=== PATIENT | female | born 1935 | race Caucasian/White ===

== ENCOUNTER 2019-07-10 00:34 | Emergency (ER) | payer MEDICARE, OTHER, MEDICAID ==
[~2019-07-10] VITALS: Ht 170.2 cm; Wt 86.2 kg
[2019-07-10 00:34] VITALS: BP 109/82
[~2019-07-10 00:34] MED LIST: ACET-687 PO; ATOR10TA PO; CANA100T PO; CARV6.25 PO; DONE10TA57 PO; FURO-81 PO; GLIM2TAB2 PO; HYDR25TA9 PO; METF10007 PO; POTA10CA PO; SERT50TA PO; SITA100T PO; SITA50TA PO; VALS320T2 PO; VALS40TA2 PO
[2019-07-10] MEDS ORDERED: DULA1.5P SQ (00:39)
[2019-07-10] MEDS ORDERED: OMEP20CA13 PO (00:39)
[2019-07-10] MEDS ORDERED: NS 1000ML 1,000 ML STA (00:40)
--- NOTE | 2019-07-10 00:46 | ER.PDOC ---
General Chief Complaint: Requesting Medical Care Stated Complaint: N/V Time seen by MD: 00:35 Source: patient, EMS, senior care records Exam Limitations: no limitations History of Present Illness Initial Comments Pt with a NH history of nausea, no vomiting, hypertension, according to senior care, no other complaints. No chest pain, no nausea at the moment. Severity/Quality: mild Allergies: Coded Allergies: morphine (Verified Allergy, Unknown, 11/22/15) Home Meds Reported Medications Dextran 70/Hypromellose (ARTIFICIAL TEARS EYE DROPS) 15 Ml Drops, 2 DROP OP Q4HR, #15 MILLILITER 5 Refills 07/10/19 Aspirin (ASPIRIN EC) 81 Mg Tablet.dr, 1 TAB PO DAILY, #30 TAB 3 Refills 07/10/19 Cyanocobalamin (Vitamin B-12) (VITAMIN B-12) 1,000 Mcg Tablet, 1 TAB PO ONE TIME A MONTH, #30 TAB 2 Refills 07/10/19 Calcium Carbonate/Vitamin D3 (CALCIUM 500 + VIT D 200 TABLET) 1 Each Tablet, 1 EACH PO BID, TABLET 07/10/19 Dulaglutide (Trulicity) 1.5 Mg/0.5 Ml Pen.injctr, 1.5 MG SQ QFRIDAY, UNITS 07/10/19 Omeprazole (OMEPRAZOLE) 20 Mg Capsule.dr, 1 CAP PO DAILY, #30 CAP 5 Refills 07/10/19 Carvedilol 6.25MG (COREG 6.25MG) 6.25 Mg Tablet, 1 TAB PO BID, #180 TAB 3 Refills 09/08/16 Acetaminophen With Codeine (TYLENOL WITH CODEINE #4 TABLET) 1 Each Tablet, 1 EACH PO Q4 for PAIN 8-10, TABLET 06/27/16 Metformin Hcl (METFORMIN HCL) 1,000 Mg Tablet, 1 TAB PO BID, #60 TAB 5 Refills 06/27/16 Valsartan (DIOVAN) 320 Mg Tablet, 80 MG PO DAILY, #90 TAB 1 Refill 03/19/16 Sitagliptin Phosphate (JANUVIA) 50 Mg Tablet, 100 MG PO DAILY, TABLET 11/22/15 Atorvastatin 10MG (LIPITOR 10MG) 10 Mg Tablet, 1 TAB PO HS, #90 TAB 1 Refill 11/22/15 Donepezil Hcl (ARICEPT) 10 Mg Tablet, 1 TAB PO DAILY, #90 TAB 3 Refills 11/22/15 Discontinued Reported Medications Furosemide (LASIX) 20 Mg Tablet, 10 MG PO DAILY, TABLET 09/08/16 Canagliflozin (Invokana) 100 Mg Tablet, 100 MG PO DAILY, TABLET 09/08/16 Sertraline Hcl (ZOLOFT) 50 Mg Tablet, 1 TAB PO DAILY, #30 TAB 2 Refills 06/27/16 Potassium Chloride (POTASSIUM CHLORIDE) 10 Meq Capsule.er, 1 CAP PO DAILY, #90 CAP 1 Refill 06/27/16 Vital Signs First Vital Signs Date Time Temp Pulse Resp B/P (MAP) Pulse Ox O2 Delivery O2 Flow Rate FiO2 07/10/19 00:34 97.6 83 16 109/82 (91) 96 Room Air Last Vital Signs Date Time Temp Pulse Resp B/P (MAP) Pulse Ox O2 Delivery O2 Flow Rate FiO2 07/10/19 00:44 97.6 83 16 96 Room Air 07/10/19 00:34 109/82 (91) Past Medical History Surgical History: hysterectomy, knee Gastrointestinal: see HPI All Other Systems: Reviewed and Negative Physical Exam General Appearance: No Apparent Distress, WD/WN HEENT: PERRL/EOMI, Normal ENT Inspection, TMs Normal, Pharynx Normal Neck: Non-Tender, Full Range of Motion, Supple, Normal Inspection Respiratory: chest non-tender, lungs clear, normal breath sounds, no respiratory distress, no accessory muscle use Cardiovascular: Normal Peripheral Pulses, Regular Rate, Rhythm, No Edema, No Gallop, No JVD, No Murmur Gastrointestinal: Normal Bowel Sounds, No Organomegaly, No Pulsatile Mass, Non Tender, Soft Back: Normal Inspection, No CVA Tenderness, No Vertebral Tenderness Extremities: Normal Range of Motion, Non-Tender, Normal Inspection, No Pedal Edema, No Calf Tenderness, Normal Capillary Refill, Pelvis Stable Neurologic/Psychiatric: staff nuclear medicine technologist II-XII NML as Tested, No Motor/Sensory Deficits, Alert, Normal Mood/Affect, Oriented x 3 Skin: Normal Color, Warm/Dry Lymphatic: No Adenopathy Results/Orders Results/Orders Orders - CORY SEPULVEDA MD Cbc With Auto Diff (07/10/19 00:40) Comprehensive Metabolic Panel (07/10/19 00:40) Amylase (07/10/19 00:40) Lipase (07/10/19 00:40) Urinalysis (07/10/19 00:40) 0.9 % Sodium Chloride (Ns 1000ml) (07/10/19 00:40) Troponin I (07/10/19 00:40) 0.9 % Sodium Chloride (Ns 1000ml) (07/10/19 01:06) Urine Culture (07/10/19 01:00) Vital Signs Date Time Temp Pulse Resp B/P (MAP) Pulse Ox O2 Delivery O2 Flow Rate FiO2 07/10/19 00:44 97.6 83 16 96 Room Air 07/10/19 00:34 97.6 83 16 07/10/19 00:34 97.6 83 16 109/82 (91) 96 Room Air Administered Medications Medications (Trade) Dose Ordered Sig/Rosina Route PRN Reason Start Time Stop Time Status Last Admin Dose Admin Sodium Chloride 1,000 ml @ 200 mls/hr Q5H STAT IV 07/10/19 00:40 07/10/19 05:39 07/10/19 01:14 200 MLS/HR Laboratory Tests Test 07/10/19 00:46 07/10/19 01:00 White Blood Count 12.4 10^3/uL (4.5-11.0) H Red Blood Count 4.38 10^6/uL (4.00-5.20) Hemoglobin 12.6 g/dL (12.0-15.0) Hematocrit 38.2 % (36.0-46.0) Mean Corpuscular Volume 87.2 fL (78-100) Mean Corpuscular Hemoglobin 28.8 pg (26-34) Mean Corpuscular Hemoglobin Concent 33.0 g/dL (33-37) Red Cell Distribution Width 14.2 % (11.5-14.5) Platelet Count 276 10^3/uL (150-400) Mean Platelet Volume 9.3 fL (7.8-11.0) Neutrophils (%) (Auto) 73.5 % (41.0-85.0) Lymphocytes (%) (Auto) 12.7 % (24.0-44.0) L Monocytes (%) (Auto) 8.0 % (5.0-12.0) Neutrophils # (Auto) 9.1 10^3/uL (1.8-7.7) H Lymphocytes # (Auto) 1.6 10^3/uL (1.0-4.8) Monocytes # (Auto) 1.0 10^3/uL (0.3-0.8) H Absolute Immature Granulocyte (auto 0.04 10^3 u/L (0-2) Immature Granulocytes % 0.30 % (0.00-0.50) Eosinophils % 5.3 % (0.0-5.0) H Basophils % 0.2 % (0.0-0.2) Basophils # 0.0 10^3/uL (0.0-0.1) Eosinophil Count 0.7 10^3/uL (0.0-0.2) H Sodium Level 140 mmol/L (132-145) Potassium Level 4.1 mmol/L (3.6-5.2) Chloride Level 104.0 mmol/L (96-109) Carbon Dioxide Level 25.7 mmol/L (20.0-32) Anion Gap 14.4 Blood Urea Nitrogen 19 mg/dL (7-18) H Creatinine 1.18 mg/dL (0.59-1.40) Estimated GFR () 52.5 (>/=60) BUN/Creatinine Ratio 16.0 Glucose Level 225 mg/dL (70-110) H Calcium Level 9.4 mg/dL (8.4-10.5) Total Bilirubin 0.6 mg/dL (0.2-1.0) Aspartate Amino Transferase (AST) 13 U/L (0-35) Alanine Aminotransferase (ALT) 11 U/L (12-78) L Alkaline Phosphatase 86 U/L (50-136) Troponin I < 0.02 ng/mL (0.00-0.05) Total Protein 7.3 g/dL (6.4-8.2) Albumin 3.8 g/dL (3.4-5.0) Globulin 3.5 Amylase Level 82 U/L (25-115) Lipase 245 U/L (114-286) Urine Collection Type VOID Urine Color YELLOW (YELLOW) Urine Appearance CLOUDY (CLEAR) H Urine Bilirubin NEGATIVE MG/DL (NEGATIVE) Urine Ketones NEGATIVE (NEGATIVE) Urine Specific [place] 1.015 (1.005-1.035) Urine pH 6 (5.0-6.0) Urine Protein 15 mg/dL (NEGATIVE) H Urine Urobilinogen NORMAL (NEGATIVE) Urine Nitrate NEGATIVE (NEGATIVE) Urine Leukocyte Esterase 100/ul 1+ (NEGATIVE) Urine Blood 10 TR (NEGATIVE) H Urine RBC 0-2 RBC/HPF (NONE SEEN) Urine WBC 10-25 WBC/HPF (0-2) H Urine Squamous Epithelial Cells NONE SEEN #/HPF (FEW) Urine Bacteria MODERATE (NONE SEEN) H Urine Yeast MANY Urine Glucose 500 (NEGATIVE) H Departure Time of Disposition: 01:23 Disposition: 01 HOME, SELF-CARE Impression: Primary Impression: Nausea Additional Impression: UTI (urinary tract infection) Condition: Stable Patient Instructions: Urinary Tract Infection Referrals: KIM FERRARA (PCP) PRIMARY CARE PROVIDER Duration or Time Spent with Pa: 20 Problem Qualifiers CORY SEPULVEDA MD Jul 10, 2019 00:46
[2019-07-10] MEDS ORDERED: CALC-157 PO (00:51)
[2019-07-10] MEDS ORDERED: ASPI-655 PO (00:51)
[2019-07-10] MEDS ORDERED: CYAN-26 PO (00:51)
[2019-07-10] MEDS ORDERED: DEXT15DR5 OP (00:51)
[2019-07-10 00:54] LABS: BASOPHIL % 0.2 % (0.0-0.2); EOSINOPHIL # 0.7 10^3/uL (0.0-0.2); EOSINOPHIL % 5.3 % (0.0-5.0); HEMOGLOBIN 12.6 g/dL (12.0-15.0); LYMPHOCYTES # 1.6 10^3/uL (1.0-4.8); LYMPHOCYTES % 12.7 % (24.0-44.0); MEAN CELL HGB 28.8 pg (26-34); MEAN CORP VOLUME 87.2 fL (78-100); MEAN PLATELET VOLUME 9.3 fL (7.8-11.0); NEUTROPHIL # 9.1 10^3/uL (1.8-7.7); NEUTROPHILS % 73.5 % (41.0-85.0); RED CELL DISTRIBUTION WIDTH 14.2 % (11.5-14.5); WHITE BLOOD CELL 12.4 10^3/uL (4.5-11.0)
[2019-07-10 01:04] LABS: BILIRUBIN,URINE NEGATIVE (NEGATIVE); UROBILINOGEN,URINE NORMAL (NEGATIVE)
[2019-07-10] MEDS ORDERED: NS 1000ML 1,000 ML ONE (01:06)
[2019-07-10 01:12] LABS: APPEARANCE,URINE CLOUDY (CLEAR); UA COLOR YELLOW (YELLOW); YEAST,URINE MANY
[2019-07-10 01:15] LABS: ALANINE AMINOTRANSFERASE(ML) 11 U/L (12-78); ALKALINE PHOSPHATASE 86 U/L (50-136); ASPARTATE AMINO TRANSFERASE 13 U/L (0-35); CALCIUM 9.4 mg/dL (8.4-10.5); CARBON DIOXIDE 25.7 mmol/L (20.0-32); GLUCOSE 225 mg/dL (70-110)
--- NOTE | 2019-07-10 01:28 | NUR ---
COMPUTER GAME TESTER SPOKE WITH SCOTT ARROYO AT [facility] REGARDING PATIENT READY TO DISCHARGE. SCOTT ARROYO STATES "IT WILL BE A WHILE BECAUSE I WILL HAVE TO GET [employer] OF OUR TRANSPORT". WILL CONTINUE TO MONITOR PATIENT UNTIL [facility] EMPLOYEE ARRIVES TO PICK HER UP.
[2019-07-10 01:30] VITALS: BP 111/56
[2019-07-10 02:30] VITALS: BP 156/68
--- NOTE | 2019-07-10 02:45 | NUR ---
IV IV DISCONTINUED, TIP INTACT. PRESSURE DRESSING APPLIED.
[2019-07-10 02:50] VITALS: BP 156/68
== END 2019-07-10 02:45 | disposition home or self-care (01) ==
LOC: ER 00:34 → EDBD 00:34 → ER 02:45
DX: N39.0 Urinary tract infection, site not specified (principal); Z79.82 Long term (current) use of aspirin; Z79.891 Long term (current) use of opiate analgesic; Z79.84 Long term (current) use of oral hypoglycemic drugs; Z90.710 Acquired absence of both cervix and uterus; Z98.890 Other specified postprocedural states; Z79.899 Other long term (current) drug therapy; Z88.5 Allergy status to narcotic agent
CPT/HCPCS: 36415; 80053; 81000; 82150; 83690; 84484; 85025; 87086; 99284; J7030; 87077; 87186

== ENCOUNTER → 2020-02-27 | Outpatient (CLI) | payer MEDICARE, OTHER, MEDICAID ==
[~2020-02-27] MED LIST changes: +ASPI-655 PO; +CALC-157 PO; +CYAN-26 PO; +DEXT15DR5 OP; +DULA1.5P SQ; -GLIM2TAB2 PO; +GLIM2TAB7 PO; +OMEP20CA19 PO
[2020-02-27 18:30] LABS: MEAN CORP HGB 26.9 pg (26-34); RED CELL DISTRIBUTION WIDTH 15.8 % (11.5-14.5)
[2020-02-27 19:06] LABS: CALCIUM 9.2 mg/dL (8.4-10.5); CARBON DIOXIDE 27.6 mmol/L (20.0-32)
== END | disposition home or self-care (01) ==
LOC: NPLAB 18:07
PROVIDERS: ATTEND Family Medicine
DX: R06.02 Shortness of breath (principal); R05 Cough; E11.9 Type 2 diabetes mellitus without complications
CPT/HCPCS: 80053; 85027; 87804; 87880

== ENCOUNTER 2020-03-02 20:25 | Emergency (ER) | payer MEDICARE, OTHER, MEDICAID ==
[~2020-03-02] VITALS: Ht 167.6 cm; Wt 81.6 kg
[2020-03-02 20:28] VITALS: BP 183/117
[2020-03-02 20:35] VITALS: BP 183/117
--- NOTE | 2020-03-02 20:49 | NUR ---
ARRIVAL PATIENT ARRIVED VIA EMS FROM [facility]. PATIENT HAD RECEIVED POSITIVE COVID-19 TEST RESULTS TODAY AND IS BEING TREATED FOR STREP THROAT. PATIENT IS STABLE AND DOES NOT KNOW WHY SHE IS HERE. I CALLED [facility] AND SPOKE WITH KELLEY, PATIENT'S NURSE. KELLEY STATED DR. FERRARA ORDERED THAT PATIENT BE SENT TO ER FOR A LAB WORKUP. KELLEY ALSO STATED THAT STATE INSPECTORS WERE DUE IN THEIR FACILITY TOMORROW AND THEY NEEDED TO SHOW ALL PRECAUTIONS BEING TAKEN.
[2020-03-02 21:30] VITALS: BP 151/115
--- NOTE | 2020-03-02 21:39 | ER.PDOC ---
General Chief Complaint: Sore Throat Stated Complaint: COVID POSITIVE/STREP POSITIE TRAVEL OUT OF US: No Time seen by MD: 21:37 Source: patient Exam Limitations: no limitations History of Present Illness Initial Comments Patient positive for COVID-19 today and sent here for labs. Patient does not have any complaints. He is taking Amoxil for a sore throat and is already feeling better. She has a mild cough but no SOB. Associated Symptoms: cough Allergies: Coded Allergies: morphine (Verified Allergy, Unknown, 11/22/15) Home Meds Reported Medications Dextran 70/Hypromellose (ARTIFICIAL TEARS EYE DROPS) 15 Ml Drops, 2 DROP OP Q4HR, #15 MILLILITER 5 Refills 07/10/19 Aspirin (ASPIRIN EC) 81 Mg Tablet.dr, 1 TAB PO DAILY, #30 TAB 3 Refills 07/10/19 Cyanocobalamin (Vitamin B-12) (VITAMIN B-12) 1,000 Mcg Tablet, 1 TAB PO ONE TIME A MONTH, #30 TAB 2 Refills 07/10/19 Calcium Carbonate/Vitamin D3 (CALCIUM 500 + VIT D 200 TABLET) 1 Each Tablet, 1 EACH PO BID, TABLET 07/10/19 Dulaglutide (Trulicity) 1.5 Mg/0.5 Ml Pen.injctr, 1.5 MG SQ QFRIDAY, UNITS 07/10/19 Omeprazole (OMEPRAZOLE) 20 Mg Capsule.dr, 1 CAP PO DAILY, #30 CAP 5 Refills 07/10/19 Carvedilol 6.25MG (COREG 6.25MG) 6.25 Mg Tablet, 1 TAB PO BID, #180 TAB 3 Refills 09/08/16 Acetaminophen With Codeine (TYLENOL WITH CODEINE #4 TABLET) 1 Each Tablet, 1 EACH PO Q4 for PAIN 8-10, TABLET 06/27/16 Metformin Hcl (METFORMIN HCL) 1,000 Mg Tablet, 1 TAB PO BID, #60 TAB 5 Refills 06/27/16 Valsartan (DIOVAN) 320 Mg Tablet, 80 MG PO DAILY, #90 TAB 1 Refill 03/19/16 Sitagliptin Phosphate (JANUVIA) 50 Mg Tablet, 100 MG PO DAILY, TABLET 11/22/15 Atorvastatin 10MG (LIPITOR 10MG) 10 Mg Tablet, 1 TAB PO HS, #90 TAB 1 Refill 11/22/15 Donepezil Hcl (ARICEPT) 10 Mg Tablet, 1 TAB PO DAILY, #90 TAB 3 Refills 11/22/15 Past Medical History Medical History: diabetes, high cholesterol, hypertension, other Surgical History: hysterectomy, knee Social History Alcohol Use: none Drug Use: none Review of Systems Constitutional: no symptoms reported Respiratory: see HPI Cardiovascular: no symptoms reported Gastrointestinal: no symptoms reported Genitourinary: no symptoms reported All Other Systems: Reviewed and Negative Physical Exam General Appearance: No Apparent Distress, WD/WN Neck: Non-Tender, Full Range of Motion, Supple Respiratory: chest non-tender, lungs clear, normal breath sounds, no respi ratory distress CVS: reg rate & rhythm, no murmur, no gallop, pulses nml Gastrointestinal: Normal Bowel Sounds, No Organomegaly, No Pulsatile Mass, Non Tender Back: Normal Inspection, No CVA Tenderness Extremities: Normal Range of Motion Neurologic/Psychiatric: environmental program manager II-XII NML as Tested Skin: Normal Color Results/Orders Results/Orders Orders - YVES RODRÍGUEZ MD Cbc With Auto Diff (03/02/20 21:00) Comprehensive Metabolic Panel (03/02/20 21:00) D-Dimer (03/02/20 21:00) C-Reactive Protein (03/02/20 21:00) Ferritin(Ml) (03/02/20 21:29) Xr Chest 2v (03/02/20 21:30) Vital Signs Date Time Temp Pulse Resp B/P (MAP) Pulse Ox O2 Delivery O2 Flow Rate FiO2 03/02/20 20:35 99.2 72 18 183/117 (139) 97 Room Air 03/02/20 20:28 99.2 72 18 97 03/02/20 20:28 99.2 72 18 Laboratory Tests Test 03/02/20 21:30 White Blood Count 5.5 10^3/uL (4.5-11.0) Red Blood Count 4.33 10^6/uL (4.00-5.20) Hemoglobin 11.7 g/dL (12.0-15.0) L Hematocrit 36.2 % (36.0-46.0) Mean Corpuscular Volume 83.6 fL (78-100) Mean Corpuscular Hemoglobin 27.0 pg (26-34) Mean Corpuscular Hemoglobin Concent 32.3 g/dL (33-36.5) L Red Cell Distribution Width 15.4 % (11.5-14.5) H Platelet Count 213 10^3/uL (150-400) Mean Platelet Volume 9.8 fL (7.8-11.0) Neutrophils (%) (Auto) 55.7 % (41.0-85.0) Lymphocytes (%) (Auto) 26.2 % (24.0-44.0) Monocytes (%) (Auto) 8.4 % (5.0-12.0) Neutrophils # (Auto) 3.1 10^3/uL (1.8-7.7) Lymphocytes # (Auto) 1.44 10^3/uL1 (1.0-4.8) Monocytes # (Auto) 0.5 10^3/uL (0.3-0.8) Absolute Immature Granulocyte (auto 0 10^3 u/L (0-2) Absolute Eosinophils (auto) 0.5 10^3/uL (0.0-0.2) H Immature Granulocytes % 0.00 % (0.00-0.50) Eosinophils % 9.3 % (0.0-5.0) H Basophils % 0.4 % (0.0-0.2) H Basophils # 0.0 10^3/uL (0.0-0.1) D-Dimer 0.77 mg/L (0.19-0.49) *H Sodium Level 141 mmol/L (132-145) Potassium Level 3.9 mmol/L (3.6-5.2) Chloride Level 105.0 mmol/L (96-109) Carbon Dioxide Level 29.6 mmol/L (20.0-32) Anion Gap 10.3 Blood Urea Nitrogen 19 mg/dL (7-18) H Creatinine 1.26 mg/dL (0.59-1.40) Estimated GFR () 48.7 (>/=60) Est GFR (CKD-EPI)(Non-Afr Iraqi) 40.3 (>/=60) BUN/Creatinine Ratio 15.0 Glucose Level 118 mg/dL (70-110) H Calcium Level 9.3 mg/dL (8.4-10.5) Ferritin 36 ng/mL (8-252) Total Bilirubin 0.9 mg/dL (0.2-1.0) Aspartate Amino Transferase (AST) 31 U/L (0-35) Alanine Aminotransferase (ALT) 19 U/L (12-78) Alkaline Phosphatase 84 U/L (50-136) C-Reactive Protein 0.40 mg/dL (0.00-5.00) Total Protein 7.6 g/dL (6.4-8.2) Albumin 3.9 g/dL (3.4-5.0) Globulin 3.7 EKG/XRAY/CT/US XRAY: chest (No active disease) Departure Time of Disposition: 22:41 Disposition: 01 HOME, SELF-CARE Impression: Primary Impression: COVID-19 virus infection Condition: Stable Referrals: KIM FERRARA (PCP) PRIMARY CARE PROVIDER Additional Instructions: F/U with your [facility]ent[facility] Provider. Duration or Time Spent with Pa: 60 min YVES RODRÍGUEZ MD Mar 02, 2020 21:39
[2020-03-02 21:45] LABS: BASOPHIL % 0.4 % (0.0-0.2); EOSINOPHIL # 0.5 10^3/uL (0.0-0.2); EOSINOPHIL % 9.3 % (0.0-5.0); LYMPHOCYTES # 1.44 10^3/uL1 (1.0-4.8); LYMPHOCYTES % 26.2 % (24.0-44.0); MONOCYTES # 0.5 10^3/uL (0.3-0.8); MONOCYTES % 8.4 % (5.0-12.0); NEUTROPHIL # 3.1 10^3/uL (1.8-7.7); NEUTROPHILS % 55.7 % (41.0-85.0); PLATELET COUNT 213 10^3/uL (150-400); RED CELL DISTRIBUTION WIDTH 15.4 % (11.5-14.5)
[2020-03-02 21:53] LABS: CALCIUM 9.3 mg/dL (8.4-10.5); CARBON DIOXIDE 29.6 mmol/L (20.0-32)
--- NOTE | 2020-03-02 22:07 | NUR ---
[facility] CALLED WITH [facility] [address].[facility]. DR MARINELLI NOTIFIED AT THIS TIME.
--- NOTE | 2020-03-02 22:35 | NUR ---
[facility] notified [facility] need for transfer
--- NOTE | 2020-03-02 22:37 | DIREP ---
PROCEDURE:CHEST 2 VIEWS COMPARISON:None. INDICATIONS:Cough FINDINGS: LUNGS/PLEURA:No significant pulmonary parenchymal abnormalities. No effusions. VASCULATURE:Normal. Unremarkable pulmonary vasculature. CARDIAC:Normal. No cardiac silhouette abnormality or cardiomegaly. MEDIASTINUM:Normal. No visible mass or adenopathy. 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 OTHER:Negative. CONCLUSION: 1. 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 Dictated by: Yadiel Weaver M.D. on 03/02/2020 at 10:35 PM
[2020-03-02 22:49] VITALS: BP 160/88
== END 2020-03-02 23:58 | disposition home or self-care (01) ==
LOC: EDBD 20:25 → ER 20:25
DX: U07.1 COVID-19 (principal); E11.9 Type 2 diabetes mellitus without complications; E78.00 Pure hypercholesterolemia, unspecified; I10 Essential (primary) hypertension; Z79.82 Long term (current) use of aspirin; Z79.899 Other long term (current) drug therapy; Z88.5 Allergy status to narcotic agent; Z90.710 Acquired absence of both cervix and uterus
CPT/HCPCS: 36415; 71046; 80053; 82728; 85025; 85379; 86140; 99284

== ENCOUNTER → 2020-03-05 | Outpatient (CLI) | payer MEDICARE, OTHER, MEDICAID ==
[2020-03-06 00:20] LABS: BASOPHIL % 0.7 % (0.0-0.2); EOSINOPHIL # 0.3 10^3/uL (0.0-0.2); EOSINOPHIL % 6.3 % (0.0-5.0); LYMPHOCYTES # 1.27 10^3/uL1 (1.0-4.8); LYMPHOCYTES % 29.8 % (24.0-44.0); MEAN CORP HGB 27.1 pg (26-34); MONOCYTES # 0.4 10^3/uL (0.3-0.8); MONOCYTES % 10.1 % (5.0-12.0); NEUTROPHIL # 2.3 10^3/uL (1.8-7.7); NEUTROPHILS % 53.1 % (41.0-85.0); PLATELET COUNT 207 10^3/uL (150-400); RED CELL DISTRIBUTION WIDTH 15.7 % (11.5-14.5)
[2020-03-06 00:24] LABS: CALCIUM 8.6 mg/dL (8.4-10.5); CARBON DIOXIDE 25.2 mmol/L (20.0-32)
== END | disposition home or self-care (01) ==
LOC: NPLAB 23:10
PROVIDERS: ATTEND Family Medicine
DX: R06.00 Dyspnea, unspecified (principal); R05 Cough; R07.0 Pain in throat; R51 Headache
CPT/HCPCS: 80053; 85025

== ENCOUNTER → 2020-03-08 | Outpatient (CLI) | payer MEDICARE, OTHER, MEDICAID ==
[2020-03-08 14:16] LABS: BASOPHIL # 0.1 10^3/uL (0.0-0.1); BASOPHIL % 1.1 % (0.0-0.2); EOSINOPHIL # 0.2 10^3/uL (0.0-0.2); EOSINOPHIL % 3.4 % (0.0-5.0); LYMPHOCYTES # 1.12 10^3/uL1 (1.0-4.8); LYMPHOCYTES % 23.9 % (24.0-44.0); MEAN CORP HGB 26.9 pg (26-34); MONOCYTES # 0.4 10^3/uL (0.3-0.8); NEUTROPHIL # 2.9 10^3/uL (1.8-7.7); NEUTROPHILS % 62.2 % (41.0-85.0); PLATELET COUNT 201 10^3/uL (150-400); RED CELL DISTRIBUTION WIDTH 15.8 % (11.5-14.5)
[2020-03-08 19:41] LABS: CALCIUM 8.8 mg/dL (8.4-10.5); CARBON DIOXIDE 26.9 mmol/L (20.0-32)
== END | disposition home or self-care (01) ==
LOC: NPLAB 13:29
PROVIDERS: ATTEND Family Medicine
DX: R06.00 Dyspnea, unspecified (principal); R05 Cough; R50.9 Fever, unspecified; R51 Headache; R07.0 Pain in throat
CPT/HCPCS: 36415; 80053; 85025

== ENCOUNTER → 2020-08-10 | Outpatient (CLI) | payer MEDICARE, OTHER, MEDICAID ==
[~2020-08-10] MED LIST changes: -ASPI-655 PO; +ASPI-929 PO
[2020-08-10 17:52] LABS: BASOPHIL % 0.5 % (0.0-0.2); EOSINOPHIL % 9.5 % (0.0-5.0); LYMPHOCYTES % 27.4 % (24.0-44.0); MEAN CORP HGB 25.8 pg (26-34); NEUTROPHIL # 3.5 10^3/uL (1.8-7.7); NEUTROPHILS % 53.6 % (41.0-85.0); RED CELL DISTRIBUTION WIDTH 16.5 % (11.5-14.5)
[2020-08-10 17:53] LABS: EOSINOPHIL # 0.6 10^3/uL (0.0-0.2); LYMPHOCYTES # 1.8 10^3/uL (1.0-4.8); MONOCYTES # 0.6 10^3/uL (0.3-0.8)
[2020-08-13 12:42] LABS: CALCIUM 9.2 mg/dL (8.4-10.5); CARBON DIOXIDE 36.3 mmol/L (20.0-32)
== END | disposition home or self-care (01) ==
LOC: NPLAB 16:36
PROVIDERS: ATTEND Family Medicine
DX: I10 Essential (primary) hypertension (principal); E11.9 Type 2 diabetes mellitus without complications; K57.91 Diverticulosis of intestine, part unspecified, without perforation or abscess with bleeding
CPT/HCPCS: 36415; 80053; 83036; 85025

== ENCOUNTER → 2020-11-23 | Outpatient (CLI) | payer MEDICARE, OTHER, MEDICAID ==
[2020-11-23 09:27] LABS: BASOPHIL % 0.3 % (0.0-0.2); EOSINOPHIL # 0.5 10^3/uL (0.0-0.2); EOSINOPHIL % 7.6 % (0.0-5.0); LYMPHOCYTES # 1.72 10^3/uL1 (1.0-4.8); LYMPHOCYTES % 24.8 % (24.0-44.0); MEAN CORP HGB 24.7 pg (26-34); MONOCYTES # 0.7 10^3/uL (0.3-0.8); MONOCYTES % 10.4 % (5.0-12.0); NEUTROPHIL # 3.9 10^3/uL (1.8-7.7); NEUTROPHILS % 56.8 % (41.0-85.0); PLATELET COUNT 277 10^3/uL (150-400)
[2020-11-23 10:05] LABS: CALCIUM 9.1 mg/dL (8.4-10.5); CARBON DIOXIDE 26.6 mmol/L (20.0-32)
== END | disposition home or self-care (01) ==
LOC: NPLAB 08:39
PROVIDERS: ATTEND Family Medicine
DX: E78.2 Mixed hyperlipidemia (principal); I10 Essential (primary) hypertension; E11.9 Type 2 diabetes mellitus without complications
CPT/HCPCS: 36415; 80053; 83036; 85025

== ENCOUNTER 2020-11-26 10:00 | Emergency (ER) | payer MEDICARE, OTHER, MEDICAID ==
[~2020-11-26] VITALS: Ht 165.1 cm; Wt 17.7 kg
[2020-11-26 10:11] VITALS: BP 169/89
--- NOTE | 2020-11-26 10:13 | ER.PDOC ---
General Chief Complaint: Requesting Medical Care Stated Complaint: HYPERTENSION TRAVEL OUT OF US: No Time seen by MD: 23:51 History of Present Illness Initial Comments Patient has no complaints. SHe was sent from [facility] because her BP was high. She was given BP meds and EMS was called. Her BP has improved. She specifically denies CP, SOB, N/V/D abd Pain, headache. blurred vision, numbness weakness or any other complaints Allergies: Coded Allergies: morphine (Verified Allergy, Unknown, 11/22/15) Home Meds Reported Medications Dextran 70/Hypromellose (ARTIFICIAL TEARS EYE DROPS) 15 Ml Drops, 2 DROP OP Q4HR, #15 MILLILITER 5 Refills 07/10/19 Aspirin (ASPIRIN EC) 81 Mg Tablet.dr, 1 TAB PO DAILY, #30 TAB 3 Refills 07/10/19 Cyanocobalamin (Vitamin B-12) (VITAMIN B-12) 1,000 Mcg Tablet, 1 TAB PO ONE TIME A MONTH, #30 TAB 2 Refills 07/10/19 Calcium Carbonate/Vitamin D3 (CALCIUM 500 + VIT D 200 TABLET) 1 Each Tablet, 1 EACH PO BID, TABLET 07/10/19 Dulaglutide (Trulicity) 1.5 Mg/0.5 Ml Pen.injctr, 1.5 MG SQ QFRIDAY, UNITS 07/10/19 Omeprazole (OMEPRAZOLE) 20 Mg Capsule.dr, 1 CAP PO DAILY, #30 CAP 5 Refills 07/10/19 Carvedilol 6.25MG (COREG 6.25MG) 6.25 Mg Tablet, 1 TAB PO BID, #180 TAB 3 Refills 09/08/16 Acetaminophen With Codeine (TYLENOL WITH CODEINE #4 TABLET) 1 Each Tablet, 1 EACH PO Q4 for PAIN 8-10, TABLET 06/27/16 Metformin Hcl (METFORMIN HCL) 1,000 Mg Tablet, 1 TAB PO BID, #60 TAB 5 Refills 06/27/16 Valsartan (DIOVAN) 320 Mg Tablet, 80 MG PO DAILY, #90 TAB 1 Refill 03/19/16 Sitagliptin Phosphate (JANUVIA) 50 Mg Tablet, 100 MG PO DAILY, TABLET 11/22/15 Atorvastatin 10MG (LIPITOR 10MG) 10 Mg Tablet, 1 TAB PO HS, #90 TAB 1 Refill 11/22/15 Donepezil Hcl (ARICEPT) 10 Mg Tablet, 1 TAB PO DAILY, #90 TAB 3 Refills 11/22/15 Past Medical History Medical History: diabetes, hypertension, other Surgical History: hysterectomy, knee Social History Drug Use: none Review of Systems Constitutional: no symptoms reported EENTM: no symptoms reported Respiratory: no symptoms reported Cardiovascular: no symptoms reported Gastrointestinal: no symptoms reported Genitourinary: no symptoms reported Musculoskeletal: no symptoms reported Skin: no symptoms reported Psychiatric/Neurological: no symptoms reported All Other Systems: Reviewed and Negative Physical Exam General Appearance: No Apparent Distress, WD/WN EENT: eyes nml inspection, nml ENT inspection Neck: Non-Tender, Supple Respiratory: chest non-tender, lungs clear, normal breath sounds, no respiratory distress CVS: reg rate & rhythm, pulses nml, nml capillary refill Gastrointestinal: Normal Bowel Sounds, Non Tender, Soft Back: Normal Inspection, No Vertebral Tenderness Extremities: Normal Range of Motion, Non-Tender Neurologic/Psychiatric: No Motor/Sensory Deficits, Alert Results/Orders Results/Orders Vital Signs Date Time Temp Pulse Resp B/P (MAP) Pulse Ox O2 Delivery O2 Flow Rate FiO2 11/26/20 10:11 96.7 81 18 95 ER DEPART Departure Time of Disposition: 10:10 Disposition: 01 HOME, SELF-CARE Impression: Primary Impression: Hypertension Condition: Stable Referrals: KIM FERRARA (PCP) PRIMARY CARE PROVIDER Duration or Time Spent with Pa: RAGHAVENDRA RAWLS MD Nov 26, 2020 10:13
--- NOTE | 2020-11-26 10:15 | NUR ---
ARRIVAL PATIENT ARRIVED TO ED3 VIA GURNEY BY [facility], EMS CALLED TO [facility] FOR HIGH BLOOD PRESSURE, NURSING FACILITY REPORTED A 210/110 BLOOD PRESSURE AND GAVE PATIENT MORE MEDICATION, ON EMS ARRIVAL BLOOD PRESSURE READING WAS 170/80, BROUGHT TO THE ED FOR EVAL, VITAL SIGNS OBTAINED AND WITHIN NORMAL LIMITS, DOCTOR CHRISTIE IN ROOM, PATIENT HAS NO COMPLAINTS AND IS UNSURE TO WHY SHE IS HERE. WILL CONTACT THE NURSING FACILITY.
[2020-11-26 10:20] VITALS: BP 146/72
--- NOTE | 2020-11-26 10:29 | NUR ---
[facility] CALLED FOR TRANSFER.
[2020-11-26 10:30] VITALS: BP 146/72
== END 2020-11-26 10:28 | disposition home or self-care (01) ==
LOC: EDBD 10:00 → ER 10:00
DX: I10 Essential (primary) hypertension (principal); E11.9 Type 2 diabetes mellitus without complications; Z79.82 Long term (current) use of aspirin; Z79.84 Long term (current) use of oral hypoglycemic drugs; Z79.899 Other long term (current) drug therapy; Z88.5 Allergy status to narcotic agent; Z90.710 Acquired absence of both cervix and uterus
CPT/HCPCS: 99283

== ENCOUNTER → 2021-02-08 | Outpatient (CLI) | payer MEDICARE, OTHER, MEDICAID ==
[2021-02-08 17:07] LABS: BASOPHIL % 0.3 % (0.0-0.2); EOSINOPHIL # 0.5 10^3/uL (0.0-0.2); EOSINOPHIL % 7.9 % (0.0-5.0); LYMPHOCYTES # 1.68 10^3/uL1 (1.0-4.8); LYMPHOCYTES % 25.1 % (24.0-44.0); MEAN CORP HGB 24.8 pg (26-34); MONOCYTES # 0.6 10^3/uL (0.3-0.8); MONOCYTES % 8.7 % (5.0-12.0); NEUTROPHIL # 3.9 10^3/uL (1.8-7.7); NEUTROPHILS % 57.9 % (41.0-85.0); PLATELET COUNT 275 10^3/uL (150-400); RED CELL DISTRIBUTION WIDTH 16.3 % (11.5-14.5)
[2021-02-08 17:45] LABS: CALCIUM 9.1 mg/dL (8.4-10.5); CARBON DIOXIDE 28.6 mmol/L (20.0-32)
== END | disposition home or self-care (01) ==
LOC: NPLAB 16:33
PROVIDERS: ATTEND Family Medicine
DX: E11.9 Type 2 diabetes mellitus without complications (principal); I10 Essential (primary) hypertension; Z79.899 Other long term (current) drug therapy
CPT/HCPCS: 36415; 80053; 80061; 82306; 83036; 84443; 85025

== ENCOUNTER → 2021-05-12 | Outpatient (CLI) | payer MEDICARE, OTHER, MEDICAID ==
[2021-05-12 13:48] LABS: BASOPHIL % 0.4 % (0.0-0.2); EOSINOPHIL # 1.1 10^3/uL (0.0-0.2); EOSINOPHIL % 15.3 % (0.0-5.0); LYMPHOCYTES # 1.95 10^3/uL1 (1.0-4.8); LYMPHOCYTES % 28.1 % (24.0-44.0); MEAN CORP HGB 24.4 pg (26-34); MONOCYTES # 0.7 10^3/uL (0.3-0.8); MONOCYTES % 9.8 % (5.0-12.0); NEUTROPHIL # 3.2 10^3/uL (1.8-7.7); NEUTROPHILS % 46.3 % (41.0-85.0); PLATELET COUNT 292 10^3/uL (150-400); RED CELL DISTRIBUTION WIDTH 17.1 % (11.5-14.5)
[2021-05-12 14:19] LABS: CARBON DIOXIDE 25.6 mmol/L (20.0-32)
== END | disposition home or self-care (01) ==
LOC: NPLAB 12:30
PROVIDERS: ATTEND Family Medicine
DX: I10 Essential (primary) hypertension (principal); E11.9 Type 2 diabetes mellitus without complications; M47.16 Other spondylosis with myelopathy, lumbar region
CPT/HCPCS: 80053; 83036; 85025

== ENCOUNTER → 2021-05-13 | Outpatient (CLI) | payer MEDICARE, OTHER, MEDICAID | END | disposition home or self-care (01) | LOC: NPLAB 12:39 | PROVIDERS: ATTEND Family Medicine | DX: I10 Essential (primary) hypertension (principal); M47.16 Other spondylosis with myelopathy, lumbar region; M19.90 Unspecified osteoarthritis, unspecified site | CPT/HCPCS: 80053 ==